=== PATIENT | male | born 1955 | race Caucasian/White ===

== ENCOUNTER 2023-07-15 11:16 | Emergency (ER) | payer MEDICARE, OTHER, SELFPAY ==
[2023-07-15 11:29] VITALS: BP 173/87; BMI 27.0
--- NOTE | 2023-07-15 12:14 | ED.CVA ---
History of Present Illness
General
Chief Complaint: CVA/TIA Symptoms
Source: patient
Exam Limitations: none
Time Seen by Provider: 07/15/23 12:13
Nursing documentation reviewed up to this point in time: agreed with
Onset of Stroke Symptoms
Onset of symptoms known: Yes
Date of onset of symptoms: 07/14/23
Travel History
Have you had any contact with someone who has COVID-19?: No
Do you have any symptoms of coronavirus? Fever > 100 degrees, chills, cough, shortness of breath, sore throat, loss of taste or smell, muscle aches, or headache?: No
History of Present Illness
History of Present Illness:
68-year-old male with history of HTN, HLD, GERD, migraines states he was sent here by his eye doctor for evaluation of double vision. Woke up with it yesterday a.m. It is persistent. Only with both eyes open. If he covers L eye R eye vision normal,
covers R eye, L eye vision normal. Denies any other visual changes. Denies headache, no recent head injury. Denies fever, denies n/v. Denies weakness, numbness. Ambulating well, steadily.
Pt had covid 2 weeks ago, recovered, had N/V/D 5 days ago for 2 days.
Pt had prostate CA, finished radiation therapy, has received Lupron q 6 mos for past 2 years, last dose Mar 2023, his final injection will be 09/2023.
Past History
Past History
ED Past Medical History: Cancer (Prostate CA), HTN, Hypercholesterolemia and Other (Pancreatitis)
ED Past Surgical History: Cholecystectomy
Social History
Tobacco: Non-smoker
Alcohol: Occasional
Drug: None
Personal:
Living: with family
Review of Systems
Review of Systems
Allergies reviewed?: Yes
All Other Systems: ROS reviewed and negative except as documented in HPI and ROS
Constitutional: Denies fever
Respiratory: Denies trouble breathing
Cardiac: Denies chest pain or syncope
ABD/GI: Denies abdominal pain, nausea or vomiting
: Denies dysuria or difficulty voiding
Musculoskeletal: Reports no symptoms
Skin: Reports no symptoms
Neurological: Denies dizzy, headache, weakness or numbness
Phy Exam
Physical Exam
Physical Exam:
GENERAL: No acute distress. A&Ox3.
CONSTITUTIONAL: Afebrile.
EYES: PERRL, conjunctivae normal, good red reflex bilaterally.
Neck: Supple
ENMT: moist mucus membranes, Pharynx nl
RESPIRATORY: Regular respirations, nonlabored, lungs clear.
CARDIOVASCULAR: Regular rate and rhythm, no murmurs, no rubs.
GI: Soft, nontender, normal BS
MUSCULOSKELETAL: Moves with ease. Well perfused.
SKIN: Warm, dry, pink
PSYCH: Normal mood and affect. Well kept, interactive and appropriate
NEUROLOGIC: Awake, alert and oriented. Speech clear, No focal neurological deficits. Ambulates with steady gait, finger to nose intact. Romberg neg. Diplopia with both eyes open, none with each individual eye when opposite eye covered.
Course
Orders/Labs/Results
Orders:
Orders
07/15/23 11:28
CT Head W/o Iv Contrast Urgent
Comment:
Reason For Exam: double vision
07/15/23 13:17
Complete Blood Count/With Diff Urgent
07/15/23 13:22
Visual Acuity- Treatment ONCE
07/15/23 14:22
Comprehensive Metabolic Panel Routine
Abnormal Lab Results
07/15/23 07/15/23
13:17 14:22
MPV 11.2 H fL
(7.4-10.4)
Immature Gran % 0.6 H %
(0-0.5)
Glucose 201 H mg/dl
(70-99)
02/07/24 13:17
07/15/23 14:22
Vital Signs
Initial and Last Documented VS:
Initial Vital Signs
Temp Pulse Resp BP Pulse Ox
98.5 F 62 16 173/87 98
07/15/23 11:29 07/15/23 11:29 07/15/23 11:29 07/15/23 11:29 07/15/23 11:29
Last Documented Vital Signs
Temp Pulse Resp BP Pulse Ox
98.5 F 66 18 168/74 98
07/15/23 11:29 07/15/23 16:14 07/15/23 16:14 07/15/23 16:14 07/15/23 16:14
MDM/Problems Addressed
Differential Diagnosis Includes:
CVA, diabetic retinopathy
MDM/Problems Addressed:
68-year-old male with history of HTN, HLD, GERD, migraines states he was sent here by his eye doctor for evaluation of double vision (vertical). Woke up with it yesterday a.m. It is persistent. Only with both eyes open. If he covers L eye R eye
vision normal, covers R eye, L eye vision normal. Denies any other visual changes. Denies headache, no recent head injury. Denies fever, denies n/v. Denies weakness, numbness. Ambulating well, steadily.
Pt had covid 2 weeks ago, recovered, had N/V/D 5 days ago for 2 days.
Pt had prostate CA, finished radiation therapy, has received Lupron q 6 mos for past 2 years, last dose Mar 2023, his final injection will be 09/2023.
07/15/2023 1332 PM
Labs pending
Head CT shows nothing acute
Patient has no focal neurological deficits, the only neurological finding is his vertical diplopia
Consulted neurologist Dr. Heath
07/15/2023 1447 PM
CBC normal
CMP normal
Dr. Heath in.
Recommendations:�
-Do not see a role for further neurological imaging.
-Checking blood work for metabolic abnormalities.
-Follow-up with neuro-materials management clerk Dr. Sarah Chow ([facility]) for evaluation/prism glasses.
-Can wear an eye patch for comfort, but this may prolong recovery time.
-Goal normoglycemia.
*Critical Care Note
Total Time (30-74mins, 75-104mins- exclusive of procedures): Not Applicable
ED Attending Note
-
Portions of this chart may have been created with voice recognition software.� Occasional wrong word or��sound alike� substitutions may have occurred due to the inherent limitations of voice recognition software.
Discharge Plan
Departure
Patient Disposition: Home (Routine Discharge)
Date of Disposition: 07/15/23
Time of Disposition: 15:59
Patient with high blood pressure during this ER visit?: Yes
Condition: Good
Discharge Problem:
Diplopia
Instructions: Double Vision (DC), BLOOD PRESSURE
Prescriptions:
No Action
atorvastatin 80 mg Tablet
80 mg PO DAILY
carvedilol 6.25 mg Tablet
6.25 mg PO DAILY
Patient Comments:
07/15/2023, pt. states to be taking once daily in the morning.
black cohosh 540 mg Capsule
540 mg PO DAILY
acetaminophen [Tylenol Extra Strength] 500 mg Tablet
1,000 mg PO BIDPRN PRN (Reason: mild pain)
levothyroxine 75 mcg Tablet
75 mcg PO SUTUWETHFRSA@0800
levothyroxine 75 mcg Tablet
150 mcg PO MO@0800
metformin 1,000 mg Tablet
1,000 mg PO BIDWMEAL
docusate sodium [Stool Softener] 100 mg Capsule
100 mg PO DAILY
furosemide 20 mg Tablet
20 mg PO DAILY
losartan 100 mg Tablet
100 mg PO DAILY
insulin glargine [Basaglar KwikPen U-100 Insulin] 100 unit/mL (3 mL) Insulin Pen
20 unit SC QPM
Lupron Depot (6 Month) 45 mg Syringe Kit
45 mg IM [id number]
Patient Comments:
07/15/2023, per pt., last dose is in September.
Referrals:
Sarah Chow, OD [Non-Admitting Privileges] - Next open appointment
Safia Murphy, DO [Family Provider] -
Activity Restrictions/Additional Instructions:
Follow Dr. Heath's Recommendations:�
-Follow-up with neuro-materials management clerk Dr. Sarah Chow ([facility]) for evaluation/prism glasses.
-Can wear an eye patch for comfort, but this may prolong recovery time.
-Goal normal blood sugars
Interventions
Interventions:
*Risk Screen - Suicide Last Done: 07/15/23 12:11
*General Assessment Last Done: 07/15/23 12:11
*Neglect/Abuse Screening Last Done: 07/15/23 16:15
ED- Fall Risk Assessment Last Done: 07/15/23 12:11
*ED COVID-19 Vaccine History Last Done: 07/15/23 11:29
*Nursing Disposition Last Done: 07/15/23 16:15
ED- Pulmonary Assessment Last Done: 07/15/23 16:15
ED- Neurological Assessment Last Done: 07/15/23 12:11
ED- Cardiac Assessment Last Done: 07/15/23 12:11
ED Swallowing Screen Last Done: 07/15/23 14:29
Discharge Date and Time
Discharge Date/Time: 07/15/23 16:16
[2023-07-15 13:32] LABS: % Eosinophils 4.1 % (0-6); % Immature Granulocytes 0.6 % (0-0.5); % Lymphocytes 20.8 % (20.5-51.1); % Monocytes 6.7 % (1.7-9.3); % Neutrophils 66.8 % (42.2-75.2); Absolute Basophils 0.1 10^3/uL (0-0.2); Absolute Eosinophils 0.3 10^3/uL (0-0.7); Absolute Lymphocytes 1.5 10^3/uL (1.2-3.4); Absolute Monocytes 0.5 10^3/uL (0.1-0.6); Absolute Neutrophils 4.8 10^3/uL (1.4-6.5); Hematocrit 40.8 % (39.0-52.0); Mean Corp Hgb Conc. 34.3 g/dL (33.0-37.0); Mean Corpuscular Hgb 29.6 pg (27.0-31.0); Mean Corpuscular Volume 86.3 fL (80.0-94.0); Mean Platelet Volume 11.2 fL (7.4-10.4); Nucleated Red Blood Cells % 0 % (-); Platelet Count 167 10^3/uL (130-400); Red Blood Cell Count 4.73 10^6/uL (4.70-6.10); Red Cell Dist. Width 12.2 % (11.5-14.5); White Blood Cell Count 7.2 10^3/uL (4.8-10.8)
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
[2023-07-15 14:42] LABS: ALT (SGPT) 21 U/L (0-50); AST (SGOT) 21 U/L (17-59); Albumin 3.8 g/dl (3.5-5.0); Alkaline Phosphatase 87 U/L (38-126); Blood Urea Nitrogen 19 mg/dl (9-20); Calcium 9.5 mg/dl (8.4-10.2); Carbon Dioxide 27 mmol/L (22-30); Chloride 98 mmol/L (98-107); Estimated Creatinine Clearance 106 ml/min; Glucose 201 mg/dl (70-99); Potassium 3.9 mmol/L (3.5-5.1); Sodium 136 mmol/L (135-145); Total Bilirubin 0.7 mg/dl (0.2-1.3); Total Protein 6.5 g/dl (6.3-8.2); eGFR > 60.00
[2023-07-15 16:14] VITALS: BP 168/74
== END 2023-07-15 16:16 | disposition home or self-care (01) ==
LOC: EMR 11:16
PROVIDERS: Registered Nurse; EMERGENCY PHYSICIAN Emergency Medicine; FAMILY PHYSICIAN Family Medicine
DX: H53.2 Diplopia (principal); I10 Essential (primary) hypertension; E78.00 Pure hypercholesterolemia, unspecified
CPT/HCPCS: 99284; 70450; 80053; 85025

== ENCOUNTER → 2023-07-30 08:31 | Outpatient (REF) | payer MEDICARE, OTHER, SELFPAY ==
[2023-07-30 09:34] LABS: Glycohemoglobin (HgbA1c) 12.7 % (4.0-5.6)
[2023-07-30 10:40] LABS: ALT (SGPT) 20 U/L (0-50); AST (SGOT) 18 U/L (17-59); Albumin 3.9 g/dl (3.5-5.0); Alkaline Phosphatase 85 U/L (38-126); Blood Urea Nitrogen 18 mg/dl (9-20); Calcium 9.2 mg/dl (8.4-10.2); Carbon Dioxide 26 mmol/L (22-30); Chloride 102 mmol/L (98-107); Glucose 197 mg/dl (70-99); HDL Cholesterol 47 mg/dl; LDL Cholesterol, Calculated 68 mg/dl; Potassium 3.9 mmol/L (3.5-5.1); Sodium 136 mmol/L (135-145); Total Bilirubin 0.7 mg/dl (0.2-1.3); Total Cholesterol 143 mg/dl (50-199); Total Protein 6.5 g/dl (6.3-8.2); Triglyceride 144 mg/dl (10-149); Very Low Density Lipoprotein 28 mg/dl (0-30); eGFR > 60.00
[2023-07-30 10:53] LABS: TSH 2.22 uIU/ml (0.47-4.68)
== END ==
LOC: REG 08:31
PROVIDERS: ATTENDING PHYSICIAN Internal Medicine Endocrinology, Diabetes & Metabolism; FAMILY PHYSICIAN Family Medicine
DX: E11.65 Type 2 diabetes mellitus with hyperglycemia (principal); E06.3 Autoimmune thyroiditis
CPT/HCPCS: 36415; 80053; 80061; 83036; 84443

== ENCOUNTER → 2023-08-19 10:40 | Outpatient (REF) | payer MEDICARE, OTHER, SELFPAY | LOC: HWRAD 10:40 | PROVIDERS: ATTENDING PHYSICIAN Family Medicine | DX: M25.551 Pain in right hip (principal) | CPT/HCPCS: 73502 ==

== ENCOUNTER 2023-10-26 15:32 | Emergency (ER) | payer MEDICARE, OTHER, SELFPAY ==
[2023-10-26] VITALS (7 sets, daily range): BP systolic 167–245; BP diastolic 82–102; BMI 30.2
[2023-10-26 18:20] LABS: % Basophils 1.3 % (0-2); % Eosinophils 5.1 % (0-6); % Immature Granulocytes 0.5 % (0-0.5); % Lymphocytes 29.5 % (20.5-51.1); % Monocytes 7.3 % (1.7-9.3); % Neutrophils 56.3 % (42.2-75.2); Absolute Basophils 0.1 10^3/uL (0-0.2); Absolute Eosinophils 0.3 10^3/uL (0-0.7); Absolute Lymphocytes 1.9 10^3/uL (1.2-3.4); Absolute Monocytes 0.5 10^3/uL (0.1-0.6); Absolute Neutrophils 3.6 10^3/uL (1.4-6.5); Hematocrit 43.3 % (39.0-52.0); Hemoglobin 14.7 g/dL (13.0-18.0); Mean Corp Hgb Conc. 33.9 g/dL (33.0-37.0); Mean Corpuscular Hgb 30.1 pg (27.0-31.0); Mean Corpuscular Volume 88.7 fL (80.0-94.0); Mean Platelet Volume 9.7 fL (7.4-10.4); Nucleated Red Blood Cells % 0 % (-); Platelet Count 172 10^3/uL (130-400); Red Blood Cell Count 4.88 10^6/uL (4.70-6.10); Red Cell Dist. Width 12.3 % (11.5-14.5); White Blood Cell Count 6.3 10^3/uL (4.8-10.8)
[2023-10-26 18:34] LABS: ALT (SGPT) 23 U/L (0-50); AST (SGOT) 21 U/L (17-59); Albumin 4.7 g/dl (3.5-5.0); Alkaline Phosphatase 89 U/L (38-126); Blood Urea Nitrogen 16 mg/dl (9-20); Calcium 10.1 mg/dl (8.4-10.2); Carbon Dioxide 31 mmol/L (22-30); Chloride 101 mmol/L (98-107); Estimated Creatinine Clearance 98 ml/min; Glucose 158 mg/dl (70-99); Lipase 49 U/L (23-300); Potassium 4.2 mmol/L (3.5-5.1); Sodium 140 mmol/L (135-145); Total Bilirubin 0.5 mg/dl (0.2-1.3); Total Protein 7.9 g/dl (6.3-8.2); eGFR > 60.00
--- NOTE | 2023-10-26 18:55 | ED.GENMED ---
History of Present Illness
General
Chief Complaint: Abdominal Symptoms
Source: patient
Exam Limitations: none
Time Seen by Provider: 10/26/23 18:16
Travel History
Have you had any contact with someone who has COVID-19?: No
Do you have any symptoms of coronavirus? Fever > 100 degrees, chills, cough, shortness of breath, sore throat, loss of taste or smell, muscle aches, or headache?: No
History of Present Illness
History of Present Illness:
This is a 68 year old male that comes in with c/o abd pain and bloating. States that he started with pain and bloating about 3 days ago. States that when he bends over this causes him to be SOB. States that there is also pain on the right sided
under his shoulder blade that comes around to the right side. States that he has a BM today but feels that his Stool has not been normal. States that he has hot flashes from the radiation. Denies any fever, chest pain, nausea, vomiting, diarrhea,
headache, dizziness, urinary burning.
Past History
Past History
ED Past Medical History: Cancer (Prostate CA with radiation), GERD, HTN, Hypercholesterolemia, NIDDM and Other (Pancreatitis, Migraines, Sleep apnea, )
ED Past Surgical History: Cholecystectomy and Other (Hernia repair, )
Social History
Tobacco: Non-smoker
Alcohol: None
Drug: None
Personal:
Living: with family
Review of Systems
Review of Systems
All Other Systems: ROS reviewed and negative except as documented in HPI and ROS
Constitutional: Reports other (Hot flashes); Denies fever or chills
EENT: Reports no symptoms
Respiratory: Reports no symptoms; Denies cough or trouble breathing
Cardiac: Reports no symptoms; Denies chest pain
ABD/GI: Reports abdominal pain; Denies nausea, vomiting or diarrhea
: Reports no symptoms; Denies dysuria, frequency or urgency
Musculoskeletal: Reports no symptoms
Skin: Reports no symptoms
Neurological: Reports no symptoms; Denies dizzy or headache
Psychiatric: Reports no symptoms
Phy Exam
General Physical Exam
General Presentation: no apparent distress
General age: appears stated age
General Skin: warm and dry
General Habitus: normal
General Mental: alert
General Hydration: dry mucous membranes
ENT Exam
ENT Exam: TM's normal, pharynx normal and neck supple
Eye Exam
Eye Exam: EOMI
Cardiovascular Exam
Cardiovascular Exam: regular rate/rhythm and normal peripheral pulses
Pulmonary Exam
Pulmonary Exam: lungs clear, no respiratory distress, no rales, chest non tender, no crackles, no rhonchi, no wheezing and no cough
Gastrointestinal Exam
Gastrointestinal Exam: normal bowel sounds, soft, no organomegaly, no pulsatile mass, non distended and tender (Slight epigastric tenderness with palpation)
Musculoskeletal Exam
Musculoskeletal Exam: full ROM and no edema
Skin Exam
Skin Exam: normal color, warm/dry, no rash and no petechia
Psychiatric Exam
Psychiatric Exam: normal mood/affect
Course
Orders/Labs/Results
Orders:
Orders
10/26/23 17:59
Complete Blood Count/With Diff Urgent
Comprehensive Metabolic Panel Urgent
Lipase Urgent
10/26/23 18:55
CT Abd/pelvis W Iv Cont Urgent
Comment:
Reason For Exam: abd pain and bloating
0.9% Sodium Chloride 1000 ml [Nss] 1,000 ml IV BOLUS
10/26/23 19:29
Carvedilol [Coreg] 6.25 mg PO NOW STA
Losartan [Cozaar] 100 mg PO NOW STA
10/26/23 19:30
Furosemide [Lasix] 20 mg PO NOW STA
10/26/23 20:24
Lorazepam [Ativan] 0.5 mg IV NOW STA
10/26/23 22:26
HydrALAZINE [Apresoline] 10 mg IV NOW STA
Abnormal Lab Results
10/26/23
17:59
Carbon Dioxide 31 H mmol/L
(22-30)
Glucose 158 H mg/dl
(70-99)
10/26/23 17:59
10/26/23 17:59
CO2 slightly elevated. Glucose nonfasting. Lipase normal at 49
Vital Signs
Initial and Last Documented VS:
Initial Vital Signs
Temp Pulse Resp BP Pulse Ox
98.1 F 62 18 245/100 97
10/26/23 15:40 10/26/23 15:40 10/26/23 15:40 10/26/23 15:40 10/26/23 15:40
Last Documented Vital Signs
Temp Pulse Resp BP Pulse Ox
98.1 F 60 16 225/97 96
10/26/23 15:40 10/26/23 22:31 10/26/23 21:24 10/26/23 22:31 10/26/23 23:00
MDM/Problems Addressed
Differential Diagnosis Includes:
Constipation,
MDM/Problems Addressed:
This is a 68 year old male that comes in with c/o abd pain and bloating. States that this started 3 days ago and he gets SOB with bending over. States that he has not taken any of his medications today as he just had his last shot for his Prostate
CA.
Will get labs and CT scan. Will give IV fluids.
Back into see patient. Reviewed CT scan. Will have patient follow up with the PCP and his Crop Or Grain Farmer due to his Hypertension. Will medicate patient at this time for his BP and recheck.
Patient BP down to 167/82 after medication. Patient to follow up with his Crop Or Grain Farmer for further evaluation. Will also give patient a bottle of Magnesium citrate for his constipation. Patient to return with any concerns.
Chronic conditions affecting care:
NA
Acute Exacerbation and/or Progression of Chronic Illness:
NA
*Radiology
Radiology exam reviewed: radiology read reviewed (CT-Mild elevated of the left hemidiaphragm. Appears chronic. Minimal adjacent basilar atelectasis. 1.6cm fluid density structure inferior to the right lower lobe pulmonary vein. Slight increas iin
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 ) and all reviewed NAD by ED Provider (CT cont- There is a 4mm hypodensity in the pancreas. Contrast-enhanced nonurgent pancreatic MRI is
recommended to obtain an appropirate baseline. Duplicated left ureter. Mild diverticulosis. Appendix is normal. Moderate stool iin the colon. No bowel obstruction. No free air. Left Inguinal hernia. )
*Pulse Oximetry
Patient hypoxic: no
*EKG
Interpreted by ED Provider?: NA
Rate: EKG- N/A
*Cost Control Supervisor Interpretation
Rate: Cost Control Supervisor- N/A
*Critical Care Note
Total Time (30-74mins, 75-104mins- exclusive of procedures): Not Applicable
ED Attending Note
-
Portions of this chart may have been created with voice recognition software.� Occasional wrong word or��sound alike� substitutions may have occurred due to the inherent limitations of voice recognition software.
Discharge Plan
Departure
Patient Disposition: Home (Routine Discharge)
Date of Disposition: 10/26/23
Time of Disposition: 23:12
Patient with high blood pressure during this ER visit?: Yes
Condition: Good
Covid-19: Not Applicable
Discharge Problem:
Abdominal pain
Instructions: Abdominal Pain, BLOOD PRESSURE
Prescriptions:
No Action
atorvastatin 80 mg Tablet
80 mg PO DAILY
carvedilol 6.25 mg Tablet
6.25 mg PO DAILY
Patient Comments:
07/15/2023, pt. states to be taking once daily in the morning.
black cohosh 540 mg Capsule
540 mg PO DAILY
acetaminophen [Tylenol Extra Strength] 500 mg Tablet
1,000 mg PO BIDPRN PRN (Reason: mild pain)
levothyroxine 75 mcg Tablet
75 mcg PO SUTUWETHFRSA@0800
levothyroxine 75 mcg Tablet
150 mcg PO MO@0800
metformin 1,000 mg Tablet
1,000 mg PO BIDWMEAL
docusate sodium [Stool Softener] 100 mg Capsule
100 mg PO DAILY
furosemide 20 mg Tablet
20 mg PO DAILY
losartan 100 mg Tablet
100 mg PO DAILY
insulin glargine [Basaglar KwikPen U-100 Insulin] 100 unit/mL (3 mL) Insulin Pen
20 unit SC QPM
Lupron Depot (6 Month) 45 mg Syringe Kit
45 mg IM [id number]
Patient Comments:
07/15/2023, per pt., last dose is in September.
Referrals:
Safia Murphy DO [Family Provider] - Follow up in 2-3 days
Jenifer Verdugo MD [Active] - Follow up in 2-3 days
Activity Restrictions/Additional Instructions:
As discussed, your blood work shows that your blood sugar is elevated. Please take your Metformin as directed. Please take your BP medication as directed and follow up with the Crop Or Grain Farmer for further evaluation. They may need to increased or add
to your medication to help control your blood pressure. Your CT shows moderate constipation and there is a nodule on the pancreas that will need further evaluation with an MRI that can be ordered by your family doctor. You have been given a bottle
of Magnesium Citrate to help with the constipation. This may take up to 6 hours to work and can cause abdominal cramping. There is a left inguinal hernia. IF YOU HAVE INCREASED OR CHANGING PAIN, OR YOU HAVE ANY OTHER CONCERNS PLEASE RETURN TO THE
EMERGENCY ROOM.
Interventions
Interventions:
*Risk Screen - Suicide Last Done: 10/26/23 15:40
*General Assessment Last Done: 10/26/23 15:40
*Neglect/Abuse Screening Last Done: 10/26/23 15:40
ED- Fall Risk Assessment Last Done: 10/26/23 17:53
*ED COVID-19 Vaccine History Last Done: 10/26/23 15:40
[id number] Assessment Last Done: 10/26/23 17:53
Discharge Date and Time
Print Language: HONDURAN
[2023-10-26] MEDS: LASIX 20 MG PO (19:45)
[2023-10-26] MEDS: COREG 6.25 MG PO (19:46)
[2023-10-26] MEDS: COZAAR 100 MG PO (19:46)
[2023-10-26] MEDS: ATIVAN 0.5 MG IV (20:28)
[2023-10-26] MEDS: NSS 1000 IV (20:29)
[2023-10-26] MEDS: APRESOLINE 10 MG IV (22:31)
[2023-10-26] MEDS: CITROMA 300 ML PO (23:23)
== END 2023-10-26 23:29 | disposition home or self-care (01) ==
LOC: EMR 15:32
PROVIDERS: Emergency Medicine; EMERGENCY PHYSICIAN Emergency Medicine; FAMILY PHYSICIAN Family Medicine
DX: R10.10 Upper abdominal pain, unspecified (principal); R14.0 Abdominal distension (gaseous); R06.02 Shortness of breath; R23.2 Flushing; K59.00 Constipation, unspecified; M25.511 Pain in right shoulder; J98.11 Atelectasis; C61 Malignant neoplasm of prostate; I10 Essential (primary) hypertension; E11.9 Type 2 diabetes mellitus without complications; E78.00 Pure hypercholesterolemia, unspecified; G47.30 Sleep apnea, unspecified; K21.9 Gastro-esophageal reflux disease without esophagitis; G43.909 Migraine, unspecified, not intractable, without status migrainosus; K40.90 Unilateral inguinal hernia, without obstruction or gangrene, not specified as recurrent; Q62.5 Duplication of ureter; K57.90 Diverticulosis of intestine, part unspecified, without perforation or abscess without bleeding; Z90.49 Acquired absence of other specified parts of digestive tract; Z92.3 Personal history of irradiation; Z88.8 Allergy status to other drugs, medicaments and biological substances
CPT/HCPCS: 99285; 96375; 96361; 96374; 74177; 80053; 83690; 85025; Q9967

== ENCOUNTER 2023-10-31 09:09 | Emergency (ER) | payer MEDICARE, OTHER, SELFPAY ==
--- NOTE | 2023-10-31 09:31 | ED.SKININJ ---
HPI-Injury
<Kailyn Hernandez RADIO OPERATOR GROUND - Last Filed: 10/31/23 16:11>
General
Chief Complaint: Skin Problem
Source: patient
Exam Limitations: none
Time Seen by Provider: 10/31/23 09:22
Nursing documentation reviewed up to this point in time: agreed with
Travel History
Have you had any contact with someone who has COVID-19?: No
Do you have any symptoms of coronavirus? Fever > 100 degrees, chills, cough, shortness of breath, sore throat, loss of taste or smell, muscle aches, or headache?: No
History of Present Illness-Injury
Initial Injury comments:
68-year-old male with history of HTN, HLD, GERD, cholecystectomy, prostate CA, hernia repair presents stating he was awakened at 5 a.m. with 'zinging' pains medial aspect of right foot and noticed a rash there. States he had shingles in same area a
year ago and was put on antiviral medication, states this feels the same.
He has also had similar pains for several weeks of mid right back and is getting P/T at home for it. He is concerned this is also shingles.
Had his last Lupron injection 3 weeks ago, followed by Dr. Jennings and Hellen.
Denies fever/chills
States he had shingles left head and shoulder 11 yrs ago.
Past History
<Kailyn Hernandez RADIO OPERATOR GROUND - Last Filed: 10/31/23 16:11>
Past History
ED Past Medical History: Cancer (Prostate CA with radiation), GERD, HTN, Hypercholesterolemia, NIDDM and Other (Pancreatitis, Migraines, Sleep apnea, )
ED Past Surgical History: Cholecystectomy and Other (Hernia repair, )
Social History
Tobacco: Non-smoker
Alcohol: None
Drug: None
Personal:
Living: with family
Review of Systems
<Kailyn V. Day, RADIO OPERATOR GROUND - Last Filed: 10/31/23 16:11>
Review of Systems
Allergies reviewed?: Yes
All Other Systems: ROS reviewed and negative except as documented in HPI and ROS
Constitutional: Denies fever
Respiratory: Denies trouble breathing
Cardiac: Denies chest pain
ABD/GI: Denies abdominal pain or nausea
: Denies dysuria or difficulty voiding
Musculoskeletal: Reports back pain; Denies edema
Skin: Reports other (pain with rash medial aspect right foot)
Phy Exam
<Kailyn Hernandez, RADIO OPERATOR GROUND - Last Filed: 10/31/23 16:11>
Physical Exam
Physical Exam:
GENERAL: No acute distress. A&Ox3.
CONSTITUTIONAL: Afebrile.
EYES: clear, conjunctivae normal
ENMT: moist mucus membranes, Pharynx nl
RESPIRATORY: Regular respirations, nonlabored, lungs clear.
CARDIOVASCULAR: Regular rate and rhythm, no murmurs, no rubs.
GI: Soft, nontender, normal BS
MUSCULOSKELETAL: Tender to palpate right mid back, no rash, swelling. Medial aspect right foot with mild macular rash, underlying and surrounding skin is normal, no swelling, no vesicles, no drainage. Moves with ease. Well perfused.
SKIN: Warm, dry, pink
PSYCH: Normal mood and affect. Well kept, interactive and appropriate
NEUROLOGIC: Awake, alert and oriented. No focal neurological deficits
Course
<Kailyn Hernandez, RADIO OPERATOR GROUND - Last Filed: 10/31/23 16:11>
Orders/Labs/Results
Orders:
Orders
10/31/23 10:47
Gabapentin [Neurontin] 100 mg PO NOW STA
Hydrocodone 5/APAP 325 [[place] 5/325] 1 tablet PO NOW STA
Vital Signs
Initial and Last Documented VS:
Initial Vital Signs
Temp Pulse Resp
98.3 F 67 16
10/31/23 09:12 10/31/23 09:12 10/31/23 09:12
Last Documented Vital Signs
Temp Pulse Resp BP Pulse Ox
98.3 F 67 16 165/84 100
10/31/23 09:12 10/31/23 09:12 10/31/23 09:12 10/31/23 11:12 10/31/23 11:03
<Cole Ortiz DO - Last Filed: 10/31/23 10:56>
Orders/Labs/Results
Orders:
Orders
10/31/23 10:47
Gabapentin [Neurontin] 100 mg PO NOW STA
Hydrocodone 5/APAP 325 [[place] 5/325] 1 tablet PO NOW STA
Vital Signs
Initial and Last Documented VS:
Initial Vital Signs
Temp Pulse Resp
98.3 F 67 16
10/31/23 09:12 10/31/23 09:12 10/31/23 09:12
Last Documented Vital Signs
Temp Pulse Resp BP Pulse Ox
98.3 F 67 16 165/84 100
10/31/23 09:12 10/31/23 09:12 10/31/23 09:12 10/31/23 11:12 10/31/23 11:03
<Kailyn Hernandez RADIO OPERATOR GROUND - Last Filed: 10/31/23 16:11>
MDM/Problems Addressed
Differential Diagnosis Includes:
Diabetic neuropathy,
MDM/Problems Addressed:
68-year-old male with history of HTN, HLD, GERD, cholecystectomy, prostate CA, hernia repair presents stating he was awakened at 5 a.m. with 'zinging' pains medial aspect of right foot and noticed a rash there. States he had shingles in same area a
year ago and was put on antiviral medication, states this feels the same.
He has also had similar pains for several weeks of mid right back and is getting P/T at home for it. He is concerned this is also shingles.
Had his last Lupron injection 3 weeks ago, followed by Dr. Jackman.
Denies fever/chills
States he had shingles left head and shoulder 11 yrs ago.
Afebrile
Elderly gentleman immunocompromised from Lupron, is immunocompromised on chemotherapy.
Mid right back pain is being addressed by PCP with P/T so no need for intervention here. No sign of shingles on the back but pt states he had similar pains same area of back a year ago and was treated for shingles.
Foot rash and pain also not typical of shingles but since pt states similar rash and pains a year ago that improved with antiviral, no harm to prescribe antiviral (pt insistent) to see if it helps.
Dr. Ortiz in to evaluated and agrees with assessment and plan
Low risk to use antivirals so will prescribe
Pt states pain is significant and requesting something for pain. Took one of his 's oxycodone and it helped
Rx sent to pharmacy for antiviral, short burst pain med and Gabapentin for longer term pain control
<Kailyn Hernandez, RADIO OPERATOR GROUND - Last Filed: 10/31/23 16:11>
*Critical Care Note
Total Time (30-74mins, 75-104mins- exclusive of procedures): Not Applicable
ED Attending Note
<Kailyn Hernandez, RADIO OPERATOR GROUND - Last Filed: 10/31/23 16:11>
-
Portions of this chart may have been created with voice recognition software.� Occasional wrong word or��sound alike� substitutions may have occurred due to the inherent limitations of voice recognition software.
<Cole Ortiz, DO - Last Filed: 10/31/23 10:56>
ED Attending Note
Patient seen and examined by attending physician: Yes
I performed the substantive portion of visit, reviewed & personally made and approve the management plan that is documented in note by myself or PAYTON.: Yes
ED Attending Note:
I have seen and evaluated the patient with a [id number] encounter. I have spoken to the advance practicer provider and involved in the medical history, the physical exam, medical decision making.
Evaluation and management service: agree unless noted differently below.
Results interpretation: agree unless noted differently below.
Focused HPI: 68-year-old male presenting with a rash on the inside of his right foot. Patient has had shingles in a similar area in the past and is worried he has shingles again
Physical exam: Well-appearing and nontoxic. Mild erythema to the inside of his right foot. The foot is otherwise neurovascular intact
Medical Decision Making: Given the prior history of shingles, will start antivirals. Discussed having this reevaluated by PCP
Discharge Plan
Departure
Patient Disposition: Home (Routine Discharge)
Date of Disposition: 10/31/23
Time of Disposition: 10:55
Patient with high blood pressure during this ER visit?: Yes
Condition: Good
Discharge Problem:
Acute pain of right foot, Rash of foot
Instructions: Skin Rash (DC), Peripheral Neuropathy (DC)
Prescriptions:
New
valacyclovir [Valtrex] 1 gram tablet
1,000 mg PO BID Qty: 14 0RF
gabapentin [Neurontin] 100 mg capsule
100 mg PO DAILY Qty: 14 0RF
hydrocodone-acetaminophen 5-325 mg tablet
1 tab PO Q8H PRN (Reason: Pain) Qty: 7 0RF
No Action
atorvastatin 80 mg Tablet
80 mg PO DAILY
carvedilol 6.25 mg Tablet
6.25 mg PO DAILY
Patient Comments:
07/15/2023, pt. states to be taking once daily in the morning.
black cohosh 540 mg Capsule
540 mg PO DAILY
acetaminophen [Tylenol Extra Strength] 500 mg Tablet
1,000 mg PO BIDPRN PRN (Reason: mild pain)
levothyroxine 75 mcg Tablet
75 mcg PO SUTUWETHFRSA@0800
levothyroxine 75 mcg Tablet
150 mcg PO MO@0800
metformin 1,000 mg Tablet
1,000 mg PO BIDWMEAL
docusate sodium [Stool Softener] 100 mg Capsule
100 mg PO DAILY
furosemide 20 mg Tablet
20 mg PO DAILY
losartan 100 mg Tablet
100 mg PO DAILY
insulin glargine [Basaglar KwikPen U-100 Insulin] 100 unit/mL (3 mL) Insulin Pen
20 unit SC QPM
Lupron Depot (6 Month) 45 mg Syringe Kit
45 mg IM [id number]
Patient Comments:
07/15/2023, per pt., last dose is in September.
Referrals:
Safia Murphy, DO [Family Provider] - Follow up in 5-7 days
Activity Restrictions/Additional Instructions:
As we discussed, I sent a prescription to your pharmacy for antiviral medication, nerve pain medication (Neurontin or gabapentin) and narcotic pain medication [place] or Hydrocodone.
See your doctor next week for recheck.
Interventions
Interventions:
*Risk Screen - Suicide Last Done: 10/31/23 09:14
*General Assessment Last Done: 10/31/23 09:12
*Neglect/Abuse Screening Last Done: 10/31/23 09:12
ED- Fall Risk Assessment Last Done: 10/31/23 09:36
*ED COVID-19 Vaccine History Last Done: 10/31/23 09:35
*Nursing Disposition Last Done: 10/31/23 11:14
ED-Skin Assessment Last Done: 10/31/23 09:36
Discharge Date and Time
Discharge Date/Time: 10/31/23 11:16
Print Language: ETHIOPIAN
[2023-10-31 11:00] VITALS: BP 209/94
[2023-10-31] MEDS: NEURONTIN 100 MG PO (11:07)
[2023-10-31] MEDS: NORCO 5/325 1 TABLET PO (11:07)
[2023-10-31 11:12] VITALS: BP 165/84
== END 2023-10-31 11:16 | disposition home or self-care (01) ==
LOC: EMR 09:09
PROVIDERS: EMERGENCY PHYSICIAN Student in an Organized Health Care Education/Training Program; FAMILY PHYSICIAN Family Medicine
DX: M79.671 Pain in right foot (principal); R21 Rash and other nonspecific skin eruption; E11.9 Type 2 diabetes mellitus without complications; E78.00 Pure hypercholesterolemia, unspecified; G47.30 Sleep apnea, unspecified; I10 Essential (primary) hypertension; K21.9 Gastro-esophageal reflux disease without esophagitis; Z85.46 Personal history of malignant neoplasm of prostate; Z90.49 Acquired absence of other specified parts of digestive tract
CPT/HCPCS: 99283

== ENCOUNTER → 2023-12-09 09:46 | Outpatient (REF) | payer MEDICARE, OTHER, SELFPAY ==
[2023-12-09 11:44] LABS: PSA, Total - Diagnostic < 0.06 ng/ml (0.0-4.0)
[2023-12-10 19:26] LABS: % Free Testosterone 1.6 % (1.6-2.9); Free Testosterone 1 pg/mL (47-244); Sex Hormone Binding Globulin 34 nmol/L (19-76); Total Testosterone 4 ng/dL (300-720)
== END ==
LOC: REG 09:46
PROVIDERS: ATTENDING PHYSICIAN Family Medicine Geriatric Medicine; FAMILY PHYSICIAN Family Medicine; OTHER PHYSICIAN Radiology Radiation Oncology
DX: C61 Malignant neoplasm of prostate (principal); Z79.818 Long term (current) use of other agents affecting estrogen receptors and estrogen levels
CPT/HCPCS: 36415; 84153; 84270; 84402; 84403

== ENCOUNTER → 2024-02-19 10:34 | Outpatient (REF) | payer MEDICARE, OTHER, SELFPAY ==
[2024-02-19 12:44] LABS: ALT (SGPT) 15 U/L (0-50); AST (SGOT) 19 U/L (17-59); Albumin 3.9 g/dl (3.5-5.0); Alkaline Phosphatase 93 U/L (38-126); Blood Urea Nitrogen 23 mg/dl (9-20); Calcium 9.9 mg/dl (8.4-10.2); Carbon Dioxide 28 mmol/L (22-30); Chloride 101 mmol/L (98-107); Glucose 136 mg/dl (70-99); HDL Cholesterol 50 mg/dl; LDL Cholesterol, Calculated 80 mg/dl; Potassium 4.2 mmol/L (3.5-5.1); Sodium 141 mmol/L (135-145); Total Bilirubin 0.7 mg/dl (0.2-1.3); Total Cholesterol 156 mg/dl (50-199); Total Protein 6.6 g/dl (6.3-8.2); Triglyceride 134 mg/dl (10-149); Very Low Density Lipoprotein 26 mg/dl (0-30); eGFR > 60.00
[2024-02-19 14:27] LABS: Glycohemoglobin (HgbA1c) 8.1 % (4.0-5.6)
== END ==
LOC: REG 10:34
PROVIDERS: ATTENDING PHYSICIAN Internal Medicine Endocrinology, Diabetes & Metabolism; FAMILY PHYSICIAN Family Medicine
DX: E11.65 Type 2 diabetes mellitus with hyperglycemia (principal); E06.3 Autoimmune thyroiditis
CPT/HCPCS: 36415; 80053; 80061; 83036

== ENCOUNTER → 2024-06-14 09:16 | Outpatient (REF) | payer MEDICARE, OTHER, SELFPAY | LOC: HWRAD 09:16 | PROVIDERS: ATTENDING PHYSICIAN Family Medicine | DX: R10.9 Unspecified abdominal pain (principal) | CPT/HCPCS: 76770 ==

== ENCOUNTER → 2024-06-17 08:06 | Outpatient (REF) | payer MEDICARE, OTHER, SELFPAY ==
[2024-06-17 10:25] LABS: ALT (SGPT) 16 U/L (0-50); AST (SGOT) 19 U/L (17-59); Albumin 4.3 g/dl (3.5-5.0); Alkaline Phosphatase 90 U/L (38-126); Blood Urea Nitrogen 15 mg/dl (9-20); Calcium 9.3 mg/dl (8.4-10.2); Carbon Dioxide 31 mmol/L (22-30); Chloride 100 mmol/L (98-107); Glucose 185 mg/dl (70-99); HDL Cholesterol 59 mg/dl; LDL Cholesterol, Calculated 100 mg/dl; Potassium 4.1 mmol/L (3.5-5.1); Sodium 139 mmol/L (135-145); Total Bilirubin 0.6 mg/dl (0.2-1.3); Total Cholesterol 188 mg/dl (50-199); Triglyceride 146 mg/dl (10-149); Very Low Density Lipoprotein 29 mg/dl (0-30); eGFR > 60.00
[2024-06-17 10:47] LABS: PSA, Total - Diagnostic 0.12 ng/ml (0.0-4.0)
[2024-06-17 12:35] LABS: Glycohemoglobin (HgbA1c) 7.6 % (4.0-5.6)
== END ==
LOC: REG 08:06
PROVIDERS: ATTENDING PHYSICIAN Internal Medicine Cardiovascular Disease; FAMILY PHYSICIAN Internal Medicine Endocrinology, Diabetes & Metabolism; REFERRING PHYSICIAN Family Medicine
DX: E78.5 Hyperlipidemia, unspecified (principal); E11.65 Type 2 diabetes mellitus with hyperglycemia; E06.3 Autoimmune thyroiditis; C61 Malignant neoplasm of prostate; Z79.818 Long term (current) use of other agents affecting estrogen receptors and estrogen levels
CPT/HCPCS: 36415; 80053; 80061; 83036; 84153; 84270; 84402; 84403

== ENCOUNTER → 2024-09-07 09:14 | Outpatient (REF) | payer MEDICARE, OTHER, SELFPAY | LOC: RCS 09:14 | PROVIDERS: ATTENDING PHYSICIAN Internal Medicine Cardiovascular Disease; FAMILY PHYSICIAN Family Medicine | DX: I35.1 Nonrheumatic aortic (valve) insufficiency (principal) | CPT/HCPCS: 93306 ==

== ENCOUNTER → 2024-10-10 08:23 | Outpatient (REF) | payer MEDICARE, OTHER, SELFPAY ==
[2024-10-10 10:02] LABS: ALT (SGPT) 16 U/L (0-50); AST (SGOT) 16 U/L (17-59); Albumin 3.7 g/dl (3.5-5.0); Alkaline Phosphatase 96 U/L (38-126); Blood Urea Nitrogen 17 mg/dl (9-20); Carbon Dioxide 28 mmol/L (22-30); Chloride 104 mmol/L (98-107); Glucose 203 mg/dl (70-99); HDL Cholesterol 40 mg/dl; LDL Cholesterol, Calculated 83 mg/dl; Potassium 4.3 mmol/L (3.5-5.1); Sodium 139 mmol/L (135-145); Total Bilirubin 0.7 mg/dl (0.2-1.3); Total Cholesterol 149 mg/dl (50-199); Total Protein 6.5 g/dl (6.3-8.2); Triglyceride 134 mg/dl (10-149); Very Low Density Lipoprotein 26 mg/dl (0-30); eGFR > 60.00
[2024-10-10 11:20] LABS: Glycohemoglobin (HgbA1c) 8.4 % (4.0-5.6)
== END ==
LOC: REG 08:23
PROVIDERS: ATTENDING PHYSICIAN Internal Medicine Endocrinology, Diabetes & Metabolism; FAMILY PHYSICIAN Family Medicine
DX: E11.65 Type 2 diabetes mellitus with hyperglycemia (principal); E06.3 Autoimmune thyroiditis
CPT/HCPCS: 36415; 80053; 80061; 83036

== ENCOUNTER → 2024-12-16 09:41 | Outpatient (REF) | payer MEDICARE, OTHER, SELFPAY ==
[2024-12-16 11:08] LABS: PSA, Total - Diagnostic 0.26 ng/ml (0.0-4.0)
== END ==
LOC: REG 09:41
PROVIDERS: ATTENDING PHYSICIAN Family Medicine Geriatric Medicine; FAMILY PHYSICIAN Family Medicine
DX: C61 Malignant neoplasm of prostate (principal); Z79.818 Long term (current) use of other agents affecting estrogen receptors and estrogen levels
CPT/HCPCS: 36415; 84153; 84270; 84402; 84403

== ENCOUNTER → 2025-01-20 12:33 | Outpatient (REF) | payer MEDICARE, OTHER, SELFPAY | LOC: HWRAD 12:33 | DX: R07.81 Pleurodynia (principal); M54.6 Pain in thoracic spine | CPT/HCPCS: 71101 ==

== ENCOUNTER → 2025-02-14 08:40 | Outpatient (REF) | payer MEDICARE, OTHER, SELFPAY ==
[2025-02-14 10:37] LABS: Glycohemoglobin (HgbA1c) 7.7 % (4.0-5.6)
[2025-02-14 15:52] LABS: ALT (SGPT) 20 U/L (0-50); AST (SGOT) 20 U/L (17-59); Albumin 4.3 g/dl (3.5-5.0); Alkaline Phosphatase 89 U/L (38-126); Blood Urea Nitrogen 16 mg/dl (9-20); Calcium 9.1 mg/dl (8.4-10.2); Carbon Dioxide 27 mmol/L (22-30); Chloride 105 mmol/L (98-107); Glucose 157 mg/dl (70-99); HDL Cholesterol 41 mg/dl; LDL Cholesterol, Calculated 69 mg/dl; Potassium 4.9 mmol/L (3.5-5.1); Sodium 138 mmol/L (135-145); Total Protein 7.2 g/dl (6.3-8.2); Very Low Density Lipoprotein 30 mg/dl (0-30); eGFR > 60.00
== END ==
LOC: REG 08:40
PROVIDERS: ATTENDING PHYSICIAN Internal Medicine Endocrinology, Diabetes & Metabolism; FAMILY PHYSICIAN Family Medicine
DX: E11.65 Type 2 diabetes mellitus with hyperglycemia (principal); E06.3 Autoimmune thyroiditis
CPT/HCPCS: 36415; 80053; 80061; 83036

== ENCOUNTER → 2025-03-15 11:42 | Outpatient (REF) | payer MEDICARE, OTHER, SELFPAY | LOC: HWRAD 11:42 | PROVIDERS: ATTENDING PHYSICIAN Family Medicine | DX: M54.14 Radiculopathy, thoracic region (principal) | CPT/HCPCS: 72072 ==

== ENCOUNTER → 2025-03-20 09:10 | Outpatient (REF) | payer MEDICARE, OTHER, SELFPAY ==
[2025-03-20 11:49] LABS: PSA, Total - Screen 0.31 ng/ml (0.0-4.0)
== END ==
LOC: REG 09:10
PROVIDERS: ATTENDING PHYSICIAN Family Medicine Geriatric Medicine; FAMILY PHYSICIAN Family Medicine
DX: C61 Malignant neoplasm of prostate (principal); Z12.5 Encounter for screening for malignant neoplasm of prostate
CPT/HCPCS: 36415; G0103